=== PATIENT | female | born 1980 | race Caucasian/White ===

== ENCOUNTER 2016-12-29 18:19 | Emergency (ER) | payer BC ==
[~2016-12-29] VITALS: Ht 162.6 cm; Wt 107.0 kg
[2016-12-29 18:32] VITALS: BP 125/83
[2016-12-29 19:18] LABS: BASOPHILS # (AUTO) 0.1 K/uL (0.00-0.22); BASOPHILS % (AUTO) 0.7 % (0.0-2.0); EOSINOPHILS # (AUTO) 0.2 K/uL (0-0.4); EOSINOPHILS % (AUTO) 2.1 % (0.0-4.0); HEMATOCRIT 30.5 % (36-48); HEMOGLOBIN 9.4 g/dL (12.0-16.0); LYMPHOCYTES # (AUTO) 2.2 K/uL (2.5-16.5); LYMPHOCYTES % (AUTO) 23.3 % (20.5-51.1); MEAN CORPUSCULAR HEMOGLOBIN 21 pg (27-31); MEAN CORPUSCULAR HGB CONC 31 g/dL (33-37); MEAN CORPUSCULAR VOLUME 68 fL (80-94); MONOCYTES # (AUTO) 0.4 K/uL (0.8-1.0); MONOCYTES % (AUTO) 4.6 % (1.7-9.3); NEUTROPHILS # (AUTO) 6.4 K/uL (1.8-7.7); NEUTROPHILS % (AUTO) 69.3 % (42.2-75.2); PLATELET COUNT (AUTO) 332 K/uL (140-450); RED BLOOD CELL COUNT(AUTO) 4.48 MIL/uL (4.20-5.40); RED CELL DISTRIBUTION WIDTH 16.8 % (11.6-13.7); WHITE BLOOD COUNT (AUTO) 9.3 K/uL (4.8-10.8)
[2016-12-29 19:32] LABS: ANION GAP 11.9 (8-16); CALCIUM 8.6 mg/dL (8.5-10.1); CARBON DIOXIDE 25.6 mmol/L (21-32); CREATININE 0.9 mg/dL (0.6-1.3); POTASSIUM 3.5 mmol/L (3.5-5.1)
[2016-12-29 19:38] LABS: ALBUMIN 3.2 g/dL (3.4-5.0); TOTAL BILIRUBIN 0.1 mg/dL (0.0-1.0); TOTAL PROTEIN, SERUM 7.3 g/dL (6.4-8.2)
[2016-12-29 20:26] VITALS: BP 125/85
== END 2016-12-29 20:26 | disposition home or self-care (01) ==
LOC: MED 18:19
DX: M94.0 Chondrocostal junction syndrome [Tietze] (principal); R11.2 Nausea with vomiting, unspecified; R06.02 Shortness of breath; F32.9 Major depressive disorder, single episode, unspecified
CPT/HCPCS: 36415; 80053; 81002; 81025; 83690; 85025; 93005; 99285